=== PATIENT | male | born 1965 | race Two or more races ===

== ENCOUNTER 2025-04-12 11:59 | Emergency (ER) | payer OTHER ==
[~2025-04-12] VITALS: Ht 177.8 cm; Wt 124.9 kg
--- NOTE | 2025-04-12 12:52 | ED.PDOC ---
HPI Comments HPI: 59-year-old male presents to the emergency department with a chief complaint of hypertension onset today (04/12/25). Patient states he went to [facility] today due to lightheadedness, BP was elevated 181/110, advised to not take BP medication, come to ED. For the past 3 days, patient was experiencing nausea/vomiting, dizziness, was seen at [place], nausea/vomiting was resolved. Denies abdominal pain, chest pain, shortness of breath, blurry vision, numbness/tingling. No other symptoms or modifying factors present at this time. Initial Vitals BP: 187/120 HR: 70 RR: 17 O2 Sat: 96% Temp: 98.2 F Past Medical history: HTN Past Surgical history: Denies Medications: Amlodipine Social History: Denies Allergies: NKDA JUANJOSE, HTN HPI: Poor Historian. REVIEW OF SYSTEMS: CONSTITUTIONAL: Denies acute: fever, diaphoresis, chills, generalized weakness. HEAD: Denies acute: headache, photophobia Eyes: Denies acute: Double vision, vision loss, eye pain, eye discharge. EARS: Denies acute: tinnitus, hearing loss, ear discharge, ear pain, THROAT: Denies acute: sore throat, swelling, difficulty swallowing , pain with swallowing, change in voice. NECK: Denies acute: neck pain, neck swelling, stiff neck. HEART: Denies acute : chest pain, palpitations, LUNGS: Denies acute: SOB, wheezing, cough, hemoptysis ABDOMEN: Denies acute: abdominal pain, Nausea, Vomiting, diarrhea, melena , hematemesis, hematochezia SKIN: Denies acute: rash, redness, lesions, itchiness. EXTREMITIES: Denies acute: calf pain, numbness, tingling, weakness, denies pain in extremity. Denies acute: Low back pain. Neuro: Denies acute: focal neurological deficit, motor or sensory focal neurological deficit, tremors, seizure like activity, confusion, , change in mental status, loss of bowel or bladder function, cauda equina like symptoms. : Denies acute: dysuria, hematuria, flank pain, increase in urinary frequency. PSYCH: Denies acute: hallucination, suicidal ideation, homicidal ideation. PHYSICAL EXAM: General: -----no---acute distress, awake and alert. Head: normocephalic, atraumatic. Neck: supple, trachea is midline, no swelling. Throat: Normal phonation. Eyes:, no erythema, no purulent discharge, no proptosis, no icterus. Heart: regular rate, regular rhythm, no significant murmur appreciated. Lungs: no apparent respiratory distress, Able to speak in full sentences. No wheezing, no rhonchi, no crackles. No stridors Clear to auscultation bilaterally. Abdomen: non tender to palpation, non distended, soft, no guarding, no rebound, + bowel sounds. Neuro: Awake, Alert, oriented to name, self, situation, follows commands GCS=15. Speech is normal. Skin: no petechia, no purpura, no cyanosis, non-pale, not jaundice. Lower extremities: --no - Pitting edema no deformity, no focal swelling, no calf TTP. Makes eye contact. moves all four extremities. Face: no apparent facial droop. Ambulating in the ED independently. ED COURSE: DISCLAIMER: This medical document was created using an electronic medical record system with voice recognition software and computerized dictation system. Although this document has been carefully reviewed, there might still be some phonetic and typographical errors. Occasional wrong-word or "sound-alike" substitutions may have occurred due to the inherent limitations of voice recognition software. These areas are purely typographical due to imperfections of the software programs and do not reflect any compromise in the patient's medical care. Please read the chart carefully and recognize, using context, where these substitutions have occurred. Chief Complaint: High Blood Pressure Time Seen by MD: 12:45 Reviewed Notes: Medications, Allergies Allergies: Coded Allergies: NO KNOWN ALLERGIES (Unverified , 04/12/25) Information Source: Patient Mode of Arrival: Ambulatory Severity: Moderate Timing: Days Duration: Since onset Prehospital treatment: None Onset: At Rest Cardiac Risk Factors: HTN PE Risk Factors: None Modifying Factors: Nothing Past Medical History PAST MEDICAL HISTORY: HTN Surgical History: Denies all surgeries Family History Family History: Reviewed,noncontributory to illness, No family hx of Cancer, No family hx of DM, No family hx of Heart yaneth, No family hx of HTN, No family hx ofKidney yaneth, No family hx of Liver yaneth, No family hx of Lung yaneth, No family hx of Stroke Social History Smoker: Non-Smoker Alcohol: Denies ETOH Use Drugs: Denies Drug Use Lives In: Home Was a procedure done? Was a procedure done?: No CP Differential Dx Differential Diagnosis: N/A Differential Diagnosis: Other (DDX include renal disease, thyroid disease, electrolyte abnormality, increased salt intake, medications non-compliance, undiagnosed HTN, Hypertensive crisis, hypertensive urgency., drug toxicity.) X-Ray, Labs, Meds, VS Vital Signs Date Time Temp Pulse Resp B/P (MAP) Pulse Ox O2 Delivery O2 Flow Rate FiO2 04/12/25 20:30 74 173/113 04/12/25 20:00 98.3 69 18 180/109 (132) 95 98.3 04/12/25 20:00 69 04/12/25 19:45 98.3 73 18 176/101 (126) 95 98.3 04/12/25 19:44 75 176/101 04/12/25 19:15 75 18 95 Room Air* 0 21 04/12/25 19:15 98.3 75 18 183/102 (129) 95 98.3 04/12/25 18:44 67 185/90 04/12/25 18:30 64 04/12/25 18:07 65 196/116 04/12/25 18:02 98.7 65 16 196/116 (142) 97 98.7 04/12/25 17:20 193/112 04/12/25 16:28 70 176/107 04/12/25 16:12 98.3 70 18 176/107 (130) 95 98.3 04/12/25 14:54 69 17 170/84 (112) 95 04/12/25 14:45 75 19 174/103 (126) 96 04/12/25 14:36 70 18 187/111 (136) 95 04/12/25 14:34 187/111 04/12/25 14:21 98.3 61 19 192/111 (138) 96 98.3 04/12/25 14:21 61 19 96 Room Air 04/12/25 14:21 192/111 04/12/25 13:25 198/110 04/12/25 12:40 98.3 70 17 187/120 (142) 96 98.3 Lab Test 04/12/25 15:51 04/12/25 13:59 04/12/25 12:57 Range/Units Troponin I High Sensitivity 10 11 10 </=54 ng/L White Blood Count 5.0 4.4-10.8 10^3/uL Red Blood Count 5.76 4.5-5.90 10^6/uL Hemoglobin 17.4 13.5-17.5 g/dL Hematocrit 50.4 41.0-53.0 % Mean Corpuscular Volume 87.5 80.0-100.0 fL Mean Corpuscular Hemoglobin 30.1 28.0-32.0 pg Mean Corpuscular Hemoglobin Concent 34.5 32.0-36.0 g/dL Red Cell Distribution Width 13.7 11.8-14.3 % Platelet Count 179 140-450 10^3/uL Mean Platelet Volume 8.5 6.9-10.8 fL Neutrophils (%) (Auto) 57.6 37.0-80.0 % Lymphocytes (%) (Auto) 22.8 10.0-50.0 % Monocytes (%) (Auto) 16.7 H 0.0-12.0 % Eosinophils (%) (Auto) 2.4 0.0-7.0 % Basophils (%) (Auto) 0.5 0.0-2.0 % Neutrophils # (Auto) 2.9 1.6-8.6 10 ^3/uL Lymphocytes # (Auto) 1.1 0.4-5.4 10 ^3/uL Monocytes # (Auto) 0.8 0-1.3 10 ^3/uL Eosinophils # (Auto) 0.1 0-0.8 10 ^3/uL Basophils # (Auto) 0 0-0.2 10 ^3/uL Nucleated Red Blood Cells 0.1 % Sodium Level 143 136-145 mmol/L Potassium Level 4.4 3.5-5.1 mmol/L Chloride Level 107 98-107 mmol/L Carbon Dioxide Level 29 20-31 mmol/L Anion Gap 7 5-15 Blood Urea Nitrogen 11 9-23 mg/dL Creatinine 1.38 H 0.700-1.30 mg/dL Glomerular Filtration Rate Calc 59 >90 mL/min BUN/Creatinine Ratio 8.0 L 10.0-20.0 Serum Glucose 91 74-106 mg/dL Calcium Level 9.9 8.7-10.4 mg/dL Total Bilirubin 0.7 0.2-1.0 mg/dL Aspartate Amino Transferase (AST) 35 H <34 U/L Alanine Aminotransferase (ALT) 34 7-40 U/L Alkaline Phosphatase 75 46-116 U/L Total Protein 7.9 5.7-8.2 g/dL Albumin 4.5 3.2-4.8 g/dL Current Medications Medications (Trade) Dose Ordered Sig/Abeba Route Start Time Stop Time Status Last Admin Nitroglycerin (Ntrostat Sublingual) 0.4 mg ONCE ONCE SL 04/12/25 12:45 04/12/25 12:46 DC 04/12/25 14:21 Amlodipine Besylate (Norvasc Tablet) 10 mg ONCE ONCE PO 04/12/25 12:45 04/12/25 12:46 DC 04/12/25 13:25 Labetalol HCl (Labetalol HCl) 5 mg ONCE ONCE IV 04/12/25 15:00 04/12/25 15:36 DC 04/12/25 16:28 Hydralazine HCl (Apresoline Injection) 5 mg ONCE ONCE IV 04/12/25 17:15 04/12/25 17:16 DC 04/12/25 17:20 Nicardipine HCl 250 ml @ 50 mls/hr Q5H IV 04/12/25 18:00 04/12/25 20:30 Labetalol HCl (Labetalol HCl) 10 mg ONCE ONCE IV 04/12/25 18:30 04/12/25 18:31 DC 04/12/25 18:44 [place] [id number] Ph: [phone] DIAGNOSTIC IMAGING Diagnostic Imaging Report : [id number] Signed PATIENT: FARHAN JENKINSACCT: [id number] UNIT: [id number] : 1965 LOC: ER ROOM / BED: / AGE / SEX: 59 / M ADM STATUS: REG ER SERVICE 1240 ORDERING PHYSICIAN: LAYO LAGOS DO PROCEDURE(s): HWOCT - HEAD WITHOUT CONTRAST REASON: HTN ORDER NUMBER(s): [id number], ACCESSION NUMBER(s): [id number] CLINICAL INFORMATION: Hypertension. TECHNIQUE: Axial imaging was obtained through the brain without contrast. Coronal and sagittal reformatted images were obtained, reviewed, and stored. Images were reviewed in brain and bone windows. All CT scans at this medical facility are performed using dose modulation techniques as appropriate to a performed exam including the following: Automated exposure control was utilized; adjustment of the MA and/or KV according to patient size; and use of iterative reconstruction technique. CTDIvol = 67.54 mGy DLP = 1279.95 mGy-cm COMPARISON: None FINDINGS: There is no acute intracranial hemorrhage. No mass effect or midline shift. The ventricles and sulci are within normal limits in size for age. Basal cisterns are patent. The calvarium is unremarkable. Paranasal sinuses and mastoid air cells are clear. IMPRESSION: No CT evidence of acute intracranial abnormality. ATED BY: ARTIS HARVEY DO DICTATED DATE/TIME: 04/12/25 133 SIGNED BY: ARTIS HARVEY DO SIGNED DATE/TIME: 04/12/25 133 CC: [place] [id number] Ph: [phone] DIAGNOSTIC IMAGING Diagnostic Imaging Report : [id number] Signed PATIENT: FARHAN JENKINSACCT: [id number] UNIT: [id number] : 1965 LOC: ER ROOM / BED: / AGE / SEX: 59 / M ADM STATUS: REG ER SERVICE 1240 ORDERING PHYSICIAN: LAYO LAGOS DO PROCEDURE(s): CXRP - CHEST PORTABLE REASON: HTN ORDER NUMBER(s): [id number], ACCESSION NUMBER(s): [id number] CHEST RADIOGRAPH Indication: HTN Technique: Single frontal view of the chest was obtained COMPARISON: None FINDINGS: Lines and Tubes: None Lungs: Clear Pleura: No effusion. No pneumothorax. Cardiomediastinal contours: Unremarkable Bones: Unremarkable IMPRESSION: No acute disease. ATED BY: DANDY CURTIS MD DICTATED DATE/TIME: 04/12/25 1326 SIGNED BY: DANDY CURTIS MD SIGNED DATE/TIME: 04/12/25 1326 CC: Time of 1ST Reevaluation: 13:15 Reevaluation 1ST: Unchanged Time of 2ND Reevaluation: 18:20 (The case was discussed with the [facility] admitting team (HPI, physical exam, labs and diagnostic tests that were available at the time of disposition, ED course, treatment plan) on the phone. They agreed to transfer the patient to their service by [facility] for further evaluation and treatment. ---. Authorization number is--Physician #[id number] dr. hilton. ) Time of 3RD Reevaluation: 21:03 Reevaluation 3RD: Improved Patient Education/Counseling: Diagnosis, Treatment Family Education/Counseling: No Family Present Comments Patient presented with the above HPI.---hypertensive crisis---workup was initiated. patient was found with the above mentioned diagnosis. the following medications were ordered: please refer to order lists of meds and tests obtained by myself Dr. Lagos. Patient ED course and VS have been stabilized. Patient has been reassessed in the ED and remained in a stable condition. Pertinent incidental findings were discussed with the patient and/or family. Patient/family voices understanding and is agreeable with plan. Patient has been observed in the ED adequate length of time to insure improvement/stability. Escalation of care considered: Consideration of escalation to observation or admission Patient was given multiple IV blood pressure medication but he continued to be hypertensive. Patient was started on a nicardipine drip. Patient was transferred to [facility] per insurance requirement for further evaluation and treatment of their presentation. All the reports of any imaging studies that were ordered by myself were reviewed by myself. Departure 1 Departure Time of Disposition: 13:17 Impression: Primary Impression: Hypertensive crisis Disposition: 02 SHORT TERM HOSPITAL Condition: Guarded Additional Instructions: Additional instructions: You MUST follow-up with your primary care/family doctor in 1 to 2 days. If you are unable to see your primary care/family doctor, please return to our emergency room for re-assessment and re-evaluation in 1 to 2 days. Return to the emergency room here in our facility or to the nearest ER [facility] if your symptoms change or worsen. CONSULTATIONS: you MUST Follow-up for consultation as soon as possible with: -cardiology and neurology in 1-2 days. Please call for appointment. You MUST call the consultants office yourself to make an appointment. You may need to arrange that through your insurance and/or your primary/family doctor. If you are unable to see the legal nurse consultant in 1 to 2 days, you must return to our emergency room (or any other ER of your choice) for re-assessment and re- evaluation. Adequate fluid hydration. Monitoring blood pressure at home at least 3 times a day. Below is a copy of your radiological report for follow up: Discharged With: Self Critical Care Note Critical Care Time?: Yes (90 min-critical care time only) Heart Score Heart Score: Heart Score Response (Comments) Value History Slightly Suspicious [address]-Deviation 2 Age 45-64 1 Risk Factors 1 or 2 risk factors 1 Troponin Normal limit 0 Total 4 I personally scribed for LAYO LAGOS DO ([email or web address]) on 04/12/25 at 12:52. Electronically submitted by Lisa Acevedo ([email or web address]). I personally scribed for LAYO LAGOS DO ([email or web address]) on 04/12/25 at 14:03. Electronically submitted by Lisa Acevedo ([email or web address]). LAYO LAGOS DO Apr 12, 2025 12:52
[2025-04-12 13:09] LABS: Basophils # (auto) 0 10 ^3/uL (0-0.2); Basophils % (auto) 0.5 % (0.0-2.0); Eosinophils # (auto) 0.1 10 ^3/uL (0-0.8); Eosinophils % (auto) 2.4 % (0.0-7.0); Hematocrit 50.4 % (41.0-53.0); Hemoglobin 17.4 g/dL (13.5-17.5); Lymphocytes # (auto) 1.1 10 ^3/uL (0.4-5.4); Lymphocytes % (auto) 22.8 % (10.0-50.0); Mean Corpuscular Hemoglobin 30.1 pg (28.0-32.0); Mean Corpuscular Hgb Conc. 34.5 g/dL (32.0-36.0); Mean Corpuscular Volume 87.5 fL (80.0-100.0); Monocytes # (auto) 0.8 10 ^3/uL (0-1.3); Monocytes % (auto) 16.7 % (0.0-12.0); Neutrophils # (auto) 2.9 10 ^3/uL (1.6-8.6); Neutrophils % (auto) 57.6 % (37.0-80.0); Nucleated Red Blood Cells % 0.1 %; Platelet Count (auto) 179 10^3/uL (140-450); Red Blood Cells 5.76 10^6/uL (4.5-5.90); Red Cell Distribution Width 13.7 % (11.8-14.3)
[2025-04-12] MEDS: amLODIPine BESYLATE 5 MG TAB PO ONE (13:25)
--- NOTE | 2025-04-12 13:28 | DVH ---
CHEST RADIOGRAPH Indication: HTN Technique: Single frontal view of the chest was obtained COMPARISON: None FINDINGS: Lines and Tubes: None Lungs: Clear Pleura: No effusion. No pneumothorax. Cardiomediastinal contours: Unremarkable Bones: Unremarkable IMPRESSION: No acute disease.
[2025-04-12 13:29] LABS: Alanine Aminotransferase 34 U/L (7-40); Albumin 4.5 g/dL (3.2-4.8); Alkaline Phosphatase 75 U/L (46-116); Anion Gap 7 (5-15); Aspartate Aminotransferase 35 U/L (<34); Bilirubin, Total 0.7 mg/dL (0.2-1.0); Blood Urea Nitrogen 11 mg/dL (9-23); Calcium 9.9 mg/dL (8.7-10.4); Carbon Dioxide 29 mmol/L (20-31); Chloride 107 mmol/L (98-107); Glucose 91 mg/dL (74-106); Potassium 4.4 mmol/L (3.5-5.1); Sodium 143 mmol/L (136-145); Total Protein 7.9 g/dL (5.7-8.2)
--- NOTE | 2025-04-12 13:34 | DVH ---
CLINICAL INFORMATION: Hypertension. TECHNIQUE: Axial imaging was obtained through the brain without contrast. Coronal and sagittal reform atted images were obtained, reviewed, and stored. Images were reviewed in brain and bone windows. Al l CT scans at this medical facility are performed using dose modulation techniques as appropriate to a performed exam including the following: Automated exposure control was utilized; adjustment of the MA and/or KV according to patient size; and use of iterative reconstruction technique. CTDIvol = 67.5 4 mGy DLP = 1279.95 mGy-cm COMPARISON: None FINDINGS: There is no acute intracranial hemorrhage. No mass effect or midline shift. The ventricles and sulci are within normal limits in size for age. Basal cisterns are patent. The calvarium is unre markable. Paranasal sinuses and mastoid air cells are clear. IMPRESSION: No CT evidence of acute intracranial abnormality.
[2025-04-12] MEDS: NITROGLYCERIN 0.4 MG SL TAB SL ONE (14:21)
[2025-04-12] MEDS: LABETALOL HCL 20 MG/4 ML VL IV ONE ×2 (16:28→18:44)
[2025-04-12] MEDS: hydrALAZINE HCL 20 MG/ML VL IV ONE (17:20)
[2025-04-12 19:15] VITALS: PULSE 75; RESP 18; O2SAT 95
[2025-04-13] MEDS: LABETALOL HCL 20 MG/4 ML VL IV ONE (03:35)
[2025-04-13] MEDS: ONDANSETRON HCL 4 MG/2 ML VIAL IV ONE (03:49)
[2025-04-13 03:58] VITALS: BP 164/69; PULSE 67; RESP 10; TEMP 98.4; O2SAT 93
--- NOTE | 2025-04-15 12:25 | ECG ---
[facility] Test Date: 2025-04-12 Test Time: 18:30:13 Pat Name: FARHAN JENKINS Department: ER Room: Gender: M [employer]: RIKI : 1965 Requested By: LAYO LAGOS Order Number: [id number] Reading MD: Nixon Bates Measurements Intervals [place] Rate: 64 P: 44 DE: 173 QRS: 1 QRSD: 91 T: -25 QT: 405 QTc: 418 Interpretive Statements Sinus rhythm Borderline repolarization abnormality Electronically Signed On 04-16-2025 22:36:45 PDT by Nixon Bates Please click the below link to view image of tracing.
== END 2025-04-13 04:14 | disposition short-term general hospital (02) ==
LOC: ER 11:59
DX: I16.9 Hypertensive crisis, unspecified (principal)
CPT/HCPCS: 36415; 70450; 71045; 80053; 84484; 85025; 93005; 96374; 96375; 96376; 99285; J0360; J2405